=== PATIENT | female | born 1960 | race Caucasian/White ===

== ENCOUNTER 2017-10-24 16:30 | Emergency (ER) | payer BC ==
--- NOTE | 2017-10-24 17:16 | ED ---
Angeli Bach Emily, scribed for Abel Ahn MD on 10/24/17 at 1705 . Allergic Reaction/Systemic - HPI Summary HPI Summary: This patient is a 57 year old F presenting referred to [facility] by PCP with a chief complaint of an allergic reaction that began 2 days ago. The patient rates the pain 0/10 in severity. Symptoms aggravated by time of day. Symptoms alleviated by nothing. Patient reports eye edema, lip edema, body sensitivity, pruritic genitals and nipples, and slight throat tightness. Patient denies wheezing and SOB. Patient denies history of seasonal allergies and new medications. - History of Current Complaint Chief Complaint: EDAllergicReaction Time Seen by Provider: 10/24/17 16:52 Hx Obtained From: Patient Hx Last Menstrual Period: 3 mos ago Onset/Duration: Sudden Onset, Started days ago, Still Present Timing: Constant Severity Initially: Mild Severity Currently: Mild Pain Intensity: 0 Pain Scale Used: 0-10 Numeric Character: Swelling Aggravating Factor(s): Other - Time of day Alleviating Factor(s): Nothing Associated Signs And Symptoms: Positive: Other: - Positive eye edema, lip edema , body sensitivity, pruritic genitals and nipples, and slight throat tightness. Negative wheezing and SOB - Allergies/Home Medications Allergies/Adverse Reactions: Allergies Allergy/AdvReac Type Severity Reaction Status Date / Time Iodinated Contrast- Oral and Allergy Eyes Verified 10/24/17 16:57 IV Dye Itchy/Swollen/Red/Watery NSAIDS (Non-Steroidal Allergy Itching Verified 10/24/17 16:41 Anti-Inflamma Penicillins Allergy Unknown Verified 10/24/17 16:41 Reaction Details Sulfa (Sulfonamide Allergy Hives Verified 10/24/17 16:41 Antibiotics) Home Medications: Home Medications Fluticasone NASAL SPRAY 50MCG* [Flonase NASAL SPRAY 50MCG*] 2 spray BOTH NARES DAILY 10/24/17 [History Confirmed 10/24/17] PMH/Surg Hx/FS Hx/Imm Hx Previously Healthy: No Endocrine/Hematology History: Reports: Hx Thyroid Disease Opthamlomology History: Denies: Hx Legally Blind EENT History: Denies: Hx Deafness - Surgical History Surgery Procedure, Year, and Place: ; wisdom teeth Infectious Disease History: No Infectious Disease History: Denies: History Other Infectious Disease, Traveled Outside the [place] in Last 30 Days - Family History Known Family History: Positive: Other - Breast CA - Social History Occupation: Employed Full-time Lives: With Family Alcohol Use: Occasionally Substance Use Type: Reports: Prescribed Smoking Status (MU): Never Smoked Tobacco Review of Systems Positive: Other - Positive slight throat tightness Positive: Other - Negative wheezing. Negative: Shortness Of Breath Positive: Edema - of the eyes and lips Positive: Other - Positive body sensitivity and pruritic genitals and nipples All Other Systems Reviewed And Are Negative: Yes Physical Exam - Summary Physical Exam Summary: Appearance: Well appearing, no pain distress Skin: warm, dry, reflects adequate perfusion, no swelling of the skin Head/face: normal, no swelling of the lips Eyes: EOMI, EM, no swelling of the eyes ENT: normal Neck: supple, non-tender Respiratory: CTA, breath sounds present Cardiovascular: RRR, pulses symmetrical Abdomen: non-tender, soft Bowel Sounds: present Musculoskeletal: normal, strength/ROM intact Neuro: normal, sensory motor intact, A&Ox3 Triage Information Reviewed: Yes Vital Signs On Initial Exam: Initial Vitals Temp Pulse Resp BP Pulse Ox 98.7 F 61 16 116/67 98 10/24/17 16:31 10/24/17 16:31 10/24/17 16:31 10/24/17 16:31 10/24/17 16:31 Vital Signs Reviewed: Yes Diagnostics - Vital Signs Vital Signs Temp Pulse Resp BP Pulse Ox 10/24/17 16:31 98.7 F 61 16 116/67 98 - Laboratory Lab Statement: Any lab studies that have been ordered have been reviewed, and results considered in the medical decision making process. Allergic Reaction Course/Dx - Course Course Of Treatment: Patient with no symptoms at present. She has had intermittent allergy-type symptoms over several days. We will place her on steroid, Claritin and when necessary Pepcid. Follow-up with primary care physician for allergy referral and testing. - Diagnoses Differential Diagnosis/HQI/PQRI: Positive: Other - Currently having no symptoms. Perhaps food versus seasonal allergy. Provider Diagnoses: Allergic reaction Discharge - Sign-Out/Discharge Documenting (check all that apply): Discharge/Admit/Transfer - Discharge Plan Condition: Good Disposition: HOME Prescriptions: Famotidine TAB* [Pepcid 20 MG TAB*] 20 mg PO BID PRN #10 tab PRN Reason: Allergy Symptoms Loratadine [Claritin] 10 mg PO DAILY #30 capsule predniSONE TAB* [Deltasone TAB*] 50 mg PO DAILY #3 tab Patient Education Materials: General Allergic Reaction (ED) Referrals: India Vale MD [Primary Care Provider] - Additional Instructions: Call your doctor on Friday to schedule an appointment for follow-up and also referral to an fuel conversion technician or for allergy testing and return with severe symptoms such as shortness of breath, wheezing, throat swelling, hives all over, or other concerns. Journal exposures that may be causing your symptoms. - Billing Disposition and Condition Condition: GOOD Disposition: HOME The documentation as recorded by the Angeli mueller Emily accurately reflects the service I personally performed and the decisions made by me, Abel Ahn MD.
[2017-10-24 17:18] VITALS: BP 130/76
== END 2017-10-24 17:16 | disposition home or self-care (01) ==
LOC: ED 16:30
DX: T78.40XA Allergy, unspecified, initial encounter (principal); X58.XXXA Exposure to other specified factors, initial encounter; R60.9 Edema, unspecified
CPT/HCPCS: 99282